=== PATIENT | male | born 1945 | race Caucasian/White ===

== ENCOUNTER 2017-03-12 18:34 | Inpatient (IN) | payer MEDICARE, MEDICAID ==
[~2017-03-12] VITALS: Wt 200.0 kg
[2017-03-12] VITALS (144 sets, daily range): O2SAT 91–99
[~2017-03-12 18:34] MED LIST: ARIXTRA2.5 MG/0.5 SC; ASPIRIN 32325 MG/TAB PO; ASPIRIN E.C.325 MG PO; CLOPIDOGREL PO; COUMADIN 4MG4 MG/TAB PO; DULCOLAX S10 MG/SUPP RC; DURICEF PO; FAMOTIDINE20 MG PO; FERROUS SU325 MG/TAB PO; FLOMAX 0.40.4 MG/CAP PO; FOLIC ACID PO; HUMALOG100 U/ML SQ; LANTUS100 U/ML SQ; LISINOPRIL10 MG PO; LOVAZA1 GM PO; NIACIN500 M4 PO; NIACOR500 MG PO; NIASPAN 500MG500 MG PO; NORCO 325 MG-51 TAB PO; NORVASC 10MG10 MG PO; NOVLOG SQ; NOVOLOG 100U100 U/ML SQ; PERCOCET 325 MG1 TA2 PO; PLAVIX 75MG TAB75 MG PO; PRINCIPEN500 MG PO; SENOKOT S 50 MG1 TAB PO; TOPROL XL100 MG PO; TRAZODONE50 MG PO; ULTRAM 50MG TAB50 MG PO; VIAGRA100 M1 PO; VICTOZA6 MG/ML SQ; VITAMIN C BUFF500 MG PO; VITAMIN C1 TAB PO; VITAMIN C500 MG PO; VITAMIN D1000 IU PO; VITAMIN D50000 I1 PO; VITAMIN E 400 U4001 PO; VITAMIN E-400200 IU PO; VYTORIN 10 MG-21 TAB PO; ZESTRIL 20MG TA20 MG PO; ZETIA 10MG TAB10 MG PO; ZOCOR 10MG10 MG PO; ZOCOR 40MG40 MG PO; ZOLOFT 50MG50 MG PO; ZOLOFT50 MG PO; ZOSYN 3.373.375 GM/V IV
[2017-03-12 19:18] LABS: COLLECTION METHOD CLEAN CATCH
[2017-03-12 19:26] LABS: MUCOUS Present /lpf; PH 5 (5-8); SQUAMOUS EPITHELIAL 0-2 /hpf; URINE APPEARANCE Clear; URINE BACTERIA None Seen /hpf; URINE BILIRUBIN Negative (NEGATIVE); URINE BLOOD 3+ (NEGATIVE); URINE COLOR Amber; URINE GLUCOSE 3+ (NEGATIVE); URINE KETONE Trace (NEGATIVE); URINE LEUKOCYTE ESTERASE Negative (NEGATIVE); URINE PROTEIN(semi-quant) 2+ (NEGATIVE); URINE RBC >50 /hpf; URINE UROBILINOGEN >=4.0 mg/dL (NEGATIVE); URINE WBC 0-2 /hpf
[2017-03-12] MEDS ORDERED: HYDROCODONE-IBUPROFE (20:09)
[2017-03-12 20:12] LABS: BASO % 0.7 % (0.0-2.0); GRAN # 4.5 (1.4-6.5); GRAN % 78.8 % (42.2-75.2); HEMATOCRIT 47.9 % (42.0-52.0); HEMOGLOBIN 16.7 g/dl (13.5-18.0); LYMPH # 0.7 (1.2-3.4); LYMPH % 12.6 % (20.0-51.0); MEAN CELL VOLUME 93 fl (80.0-100.0); MEAN CORPUSCULAR HEMOGLOBIN 32 pg (27.0-31.0); MEAN CORPUSCULAR HGB CONC 35 g/dl (33.0-37.0); MEAN PLATELET VOLUME 12.7 fl (7.4-10.4); MONO # 0.5 (0.1-0.6); MONO % 7.9 % (1.7-9.3); PLATELET COUNT 76 K/mm3 (130-400); RED BLOOD COUNT 5.17 M/mm3 (4.20-5.60); WHITE BLOOD COUNT 5.7 K/mm3 (4.8-10.8)
[2017-03-12 20:19] LABS: INR 1.1 (0.8-3.0); PROTHROMBIN TIME 13.3 SECONDS (9.7-12.8)
[2017-03-12 20:21] LABS: PARTIAL THROMBOPLASTIN TIME 31.3 SECONDS (26.0-37.0)
[2017-03-12 20:25] LABS: ADJUSTED CALCIUM 9.3 mg/dL (8.4-10.2); ALBUMIN 4.3 gm/dL (3.5-5.0); BILIRUBIN,TOTAL 1.7 mg/dL (0.0-1.0); C-REACTIVE PROTEIN 2.7 mg/dL (0.0-0.9); CALCIUM 9.5 mg/dL (8.4-10.2); CREATININE, serum 0.76 mg/dL (0.66-1.25); TOTAL PROTEIN 8.1 gm/dL (6.4-8.2)
[2017-03-12 20:34] LABS: TROPONIN-I 0.072 ng/mL (0.000-0.034)
[2017-03-12 20:52] LABS: TSH w REFLEX 0.511 uIU/mL (0.465-4.680)
[2017-03-12 21:56] LABS: ARTERIAL BLD GAS O2 SATURATION 96.5 % (92-100); ARTERIAL BLD GAS TCO2 CT 25.9; ARTERIAL BLOOD GAS BASE EXCESS -0.5 (-2-2); ARTERIAL BLOOD GAS HCO3 24.6 meq/L (22-26); ARTERIAL BLOOD GAS PHT 7.39 C (7.35-7.45); ARTERIAL BLOOD GAS PO2 86.1 mmHg (80-100); ARTERIAL BLOOD GAS PO2T 86.1 (80-100); ARTERIAL BLOOD GAS pH 7.39 (7.35-7.45); OXYHEMOGLOBIN 94.9 %
[2017-03-13] VITALS (258 sets, daily range): BP systolic 174–207; BP diastolic 69–99; PULSE 118–134; TEMP 100.9–101; O2SAT 96–98
[2017-03-13 03:35] LABS: ALLEN TEST YES; ALLENS TEST RESULT PASS; ATS? YES
== END 2017-03-13 04:45 | disposition short-term general hospital (02) | DRG 281 ==
LOC: COL.ER 18:34 → ICU 20:53
PROVIDERS: Emergency Medicine; Family Medicine
DX: I21.4 Non-ST elevation (NSTEMI) myocardial infarction (principal); R65.10 Systemic inflammatory response syndrome (SIRS) of non-infectious origin without acute organ dysfunction; Z66 Do not resuscitate; R31.9 Hematuria, unspecified; E11.9 Type 2 diabetes mellitus without complications; I25.10 Atherosclerotic heart disease of native coronary artery without angina pectoris; E78.5 Hyperlipidemia, unspecified; F32.9 Major depressive disorder, single episode, unspecified; D69.6 Thrombocytopenia, unspecified; G89.29 Other chronic pain; Z95.5 Presence of coronary angioplasty implant and graft; I25.2 Old myocardial infarction; Z79.4 Long term (current) use of insulin; Z87.891 Personal history of nicotine dependence
CPT/HCPCS: 99223-AI; J0360; J0696; J1170; J1650; J1815; J2060; J2765; J3010; J3370; J7030; J7050

== ENCOUNTER → 2017-06-01 | Outpatient (CLI) | payer MEDICARE, MEDICAID ==
[~2017-06-01] MED LIST changes: +HYDROCODONE-IBUPROFE
[2017-06-01 15:46] LABS: BASO % 1.3 % (0.0-2.0); EOS # 0.1 (0.0-0.7); EOS % 3.3 % (0-4.0); GRAN # 1.5 (1.4-6.5); HEMATOCRIT 45.8 % (42.0-52.0); HEMOGLOBIN 15.5 g/dl (13.5-18.0); LYMPH # 1.1 (1.2-3.4); LYMPH % 35.8 % (20.0-51.0); MEAN CELL VOLUME 94 fl (80.0-100.0); MEAN CORPUSCULAR HEMOGLOBIN 32 pg (27.0-31.0); MEAN CORPUSCULAR HGB CONC 34 g/dl (33.0-37.0); MEAN PLATELET VOLUME 12.6 fl (7.4-10.4); MONO # 0.3 (0.1-0.6); MONO % 11.3 % (1.7-9.3); PLATELET COUNT 74 K/mm3 (130-400); RED BLOOD COUNT 4.87 M/mm3 (4.20-5.60); REDCELL DISTRIBUTION WIDTH-CV 13.2 % (11.5-14.5)
[2017-06-01 15:59] LABS: ALBUMIN 3.7 gm/dL (3.5-5.0); CALCIUM 9.2 mg/dL (8.4-10.2); CHOLESTEROL RISK RATIO 3.6; CREATININE, serum 0.67 mg/dL (0.66-1.25); POTASSIUM 3.9 mmol/L (3.4-5.0); TOTAL PROTEIN 7.4 gm/dL (6.4-8.2)
== END ==
LOC: COL.LAB 15:21
PROVIDERS: Family Medicine
DX: I51.7 Cardiomegaly (principal); J90 Pleural effusion, not elsewhere classified; R09.89 Other specified symptoms and signs involving the circulatory and respiratory systems; E11.9 Type 2 diabetes mellitus without complications; Z88.8 Allergy status to other drugs, medicaments and biological substances; Z91.040 Latex allergy status

== ENCOUNTER → 2017-10-05 | Outpatient (CLI) | payer MEDICARE, MEDICAID ==
[~2017-10-05] MED LIST changes: +AMOXICILLIN 8751 TAB PO; +K-TAB10 PO; +LASIX 20MG TABL20 MG PO
[2017-10-05 14:05] LABS: CREATININE, serum 0.78 mg/dL (0.66-1.25); POTASSIUM 3.9 mmol/L (3.4-5.0)
== END ==
LOC: COL.LAB 12:48
PROVIDERS: Family Medicine
DX: E11.9 Type 2 diabetes mellitus without complications (principal); Z86.79 Personal history of other diseases of the circulatory system

== ENCOUNTER → 2018-02-27 | Outpatient (CLI) | payer MEDICARE, MEDICAID ==
[2018-02-27 17:39] LABS: BASO % 0.8 % (0.0-2.0); EOS # 0.2 (0.0-0.7); EOS % 4.1 % (0-4.0); GRAN % 51.4 % (42.2-75.2); HEMATOCRIT 45.7 % (42.0-52.0); HEMOGLOBIN 15.4 g/dl (13.5-18.0); LYMPH # 1.2 (1.2-3.4); LYMPH % 30.5 % (20.0-51.0); MEAN CELL VOLUME 95 fl (80.0-100.0); MEAN CORPUSCULAR HEMOGLOBIN 32 pg (27.0-31.0); MEAN CORPUSCULAR HGB CONC 34 g/dl (33.0-37.0); MEAN PLATELET VOLUME 12.8 fl (7.4-10.4); MONO # 0.5 (0.1-0.6); MONO % 12.9 % (1.7-9.3); PLATELET COUNT 87 K/mm3 (130-400); RED BLOOD COUNT 4.79 M/mm3 (4.20-5.60)
[2018-02-27 17:43] LABS: CALCIUM 9.2 mg/dL (8.4-10.2); CREATININE, serum 0.72 mg/dL (0.66-1.25); POTASSIUM 3.7 mmol/L (3.4-5.0)
== END ==
LOC: COL.LAB 16:11
PROVIDERS: Family Medicine
DX: I51.7 Cardiomegaly (principal); R09.89 Other specified symptoms and signs involving the circulatory and respiratory systems

== ENCOUNTER 2018-06-07 15:06 | Emergency (ER) | payer MEDICARE, MEDICAID ==
[~2018-06-07] VITALS: Ht 175.3 cm; Wt 181.8 kg
[2018-06-07 16:42] LABS: EOS # 0.1 (0.0-0.7); EOS % 1.7 % (0-4.0); GRAN # 2.9 (1.4-6.5); GRAN % 70.3 % (42.2-75.2); HEMATOCRIT 47.7 % (42.0-52.0); HEMOGLOBIN 15.9 g/dl (13.5-18.0); LYMPH # 0.6 (1.2-3.4); LYMPH % 14.6 % (20.0-51.0); MEAN CELL VOLUME 95 fl (80.0-100.0); MEAN CORPUSCULAR HEMOGLOBIN 32 pg (27.0-31.0); MEAN CORPUSCULAR HGB CONC 33 g/dl (33.0-37.0); MEAN PLATELET VOLUME 12.4 fl (7.4-10.4); MONO # 0.5 (0.1-0.6); MONO % 11.9 % (1.7-9.3); PLATELET COUNT 71 K/mm3 (130-400); RED BLOOD COUNT 5.02 M/mm3 (4.20-5.60); REDCELL DISTRIBUTION WIDTH-CV 13.3 % (11.5-14.5)
[2018-06-07 16:51] LABS: ALBUMIN 3.7 gm/dL (3.5-5.0); BILIRUBIN,TOTAL 1.5 mg/dL (0.0-1.0); CALCIUM 9.3 mg/dL (8.4-10.2); CREATININE, serum 0.74 mg/dL (0.66-1.25); POTASSIUM 3.8 mmol/L (3.4-5.0)
[2018-06-07 17:09] LABS: TROPONIN-I 0.057 ng/mL (0.000-0.035)
[2018-06-07 17:48] LABS: COLLECTION METHOD CLEAN CATCH
[2018-06-07 18:00] LABS: MUCOUS Present /lpf; PH 5 (5-8); SQUAMOUS EPITHELIAL 0-2 /hpf; URINE APPEARANCE Hazy; URINE BACTERIA None Seen /hpf; URINE BILIRUBIN Negative (NEGATIVE); URINE BLOOD 3+ (NEGATIVE); URINE CALCIUM OXALATE CRYSTAL Present /hpf; URINE COLOR Yellow; URINE GLUCOSE Negative (NEGATIVE); URINE KETONE Negative (NEGATIVE); URINE LEUKOCYTE ESTERASE Negative (NEGATIVE); URINE NITRATE Negative (NEGATIVE); URINE PROTEIN(semi-quant) 1+ (NEGATIVE); URINE RBC 20-50 /hpf; URINE UROBILINOGEN >=4.0 mg/dL (NEGATIVE)
[2018-06-07 19:08] VITALS: BP 146/64; PULSE 89; TEMP 99.4
== END 2018-06-07 22:28 | disposition short-term general hospital (02) ==
LOC: COL.ER 15:06
PROVIDERS: Emergency Medicine
DX: A41.9 Sepsis, unspecified organism (principal); J11.00 Influenza due to unidentified influenza virus with unspecified type of pneumonia; J18.9 Pneumonia, unspecified organism; L08.9 Local infection of the skin and subcutaneous tissue, unspecified; E66.01 Morbid (severe) obesity due to excess calories; Z68.43 Body mass index [BMI] 50.0-59.9, adult; Z79.82 Long term (current) use of aspirin; Z79.4 Long term (current) use of insulin; Z95.9 Presence of cardiac and vascular implant and graft, unspecified
CPT/HCPCS: J2543; J3370; J7030; J7040

== ENCOUNTER → 2018-06-20 | Outpatient (REF) ==
[~2018-06-20] MED LIST changes: +EPA FISH OIL1 SGL PO; +MIRALAX PA17 GM/Dose; +MUCINEX D1 TER PO; +NOVOLOG FLEX100 U/ML SQ; +SENNA-LAX8.6 MG PO; +TOPROL XL 25MG25 MG; +TYLENOL 325MG325 MG PO; +VITAMIN D31000 I1 PO; +VITAMIN E1000 U/CAP
[2018-06-20 16:08] LABS: COLLECTION METHOD CATHETER
[2018-06-20 16:26] LABS: PH 7 (5-8); SQUAMOUS EPITHELIAL None Seen /hpf; URINE APPEARANCE Cloudy; URINE BACTERIA None Seen /hpf; URINE BILIRUBIN Negative (NEGATIVE); URINE BLOOD 3+ (NEGATIVE); URINE COLOR Amber; URINE GLUCOSE Negative (NEGATIVE); URINE KETONE Negative (NEGATIVE); URINE LEUKOCYTE ESTERASE Negative (NEGATIVE); URINE NITRATE Negative (NEGATIVE); URINE PROTEIN(semi-quant) 2+ (NEGATIVE); URINE RBC >50 /hpf; URINE UROBILINOGEN >=4.0 mg/dL (NEGATIVE)
== END ==
LOC: ZCOL.LAB 16:07
PROVIDERS: Family Medicine
DX: N39.0 Urinary tract infection, site not specified (principal)

== ENCOUNTER → 2018-06-20 | Outpatient (REF) | LOC: CANPREREF → ZLAB.WCH 16:05 | DX: Z01.89 Encounter for other specified special examinations (principal) ==

== ENCOUNTER 2018-06-22 07:48 | Inpatient (IN) | payer MEDICARE, MEDICAID ==
[2018-06-22] VITALS (686 sets, daily range): BP systolic 110–136; BP diastolic 50–76; PULSE 65–92; TEMP 98.4–98.8; O2SAT 79–100
[~2018-06-22] VITALS: Ht 175.3 cm; Wt 192.3 kg
[~2018-06-22 07:48] MED LIST changes: -EPA FISH OIL1 SGL PO; -MIRALAX PA17 GM/Dose; -MUCINEX D1 TER PO; -NOVOLOG FLEX100 U/ML SQ; -SENNA-LAX8.6 MG PO; -TOPROL XL 25MG25 MG; -TYLENOL 325MG325 MG PO; -VITAMIN D31000 I1 PO; -VITAMIN E1000 U/CAP
[2018-06-22 08:09] LABS: ARTERIAL BLD GAS O2 SATURATION 97.8 % (92-100); ARTERIAL BLD GAS TCO2 CT 31.6; ARTERIAL BLOOD GAS BASE EXCESS 1.5 (-2-2); ARTERIAL BLOOD GAS HCO3 29.7 meq/L (22-26); ARTERIAL BLOOD GAS PCO2 62.6 mmHg (35-45); ARTERIAL BLOOD GAS PO2 121.7 mmHg (80-100); ARTERIAL BLOOD GAS pH 7.29 (7.35-7.45)
[2018-06-22 08:27] LABS: BASO % 0.7 % (0.0-2.0); EOS # 0.2 (0.0-0.7); EOS % 4.2 % (0-4.0); GRAN # 2.1 (1.4-6.5); GRAN % 52.7 % (42.2-75.2); HEMOGLOBIN 14.2 g/dl (13.5-18.0); LYMPH # 1.3 (1.2-3.4); LYMPH % 31.6 % (20.0-51.0); MEAN CELL VOLUME 100 fl (80.0-100.0); MEAN CORPUSCULAR HEMOGLOBIN 31 pg (27.0-31.0); MEAN CORPUSCULAR HGB CONC 32 g/dl (33.0-37.0); MEAN PLATELET VOLUME 12.9 fl (7.4-10.4); MONO # 0.4 (0.1-0.6); MONO % 10.6 % (1.7-9.3); PLATELET COUNT 100 K/mm3 (130-400); RED BLOOD COUNT 4.52 M/mm3 (4.20-5.60); REDCELL DISTRIBUTION WIDTH-CV 13.5 % (11.5-14.5)
[2018-06-22 08:27] LABS: COLLECTION METHOD CLEAN CATCH
[2018-06-22 08:34] LABS: HYALINE CAST >12 /lpf; MUCOUS Present /lpf; PH 6 (5-8); SQUAMOUS EPITHELIAL None Seen /hpf; URINE APPEARANCE Cloudy; URINE BACTERIA None Seen /hpf; URINE BILIRUBIN Negative (NEGATIVE); URINE BLOOD 3+ (NEGATIVE); URINE CALCIUM OXALATE CRYSTAL Present /hpf; URINE COLOR Red; URINE GLUCOSE 1+ (NEGATIVE); URINE KETONE Negative (NEGATIVE); URINE LEUKOCYTE ESTERASE Negative (NEGATIVE); URINE NITRATE Negative (NEGATIVE); URINE PROTEIN(semi-quant) 3+ (NEGATIVE); URINE RBC >50 /hpf; URINE UROBILINOGEN >=4.0 mg/dL (NEGATIVE)
[2018-06-22 08:40] LABS: ALBUMIN 3.4 gm/dL (3.5-5.0); BILIRUBIN,TOTAL 1.1 mg/dL (0.0-1.0); CALCIUM 9.2 mg/dL (8.4-10.2); CREATININE, serum 0.72 mg/dL (0.66-1.25); POTASSIUM 3.8 mmol/L (3.4-5.0); TOTAL PROTEIN 7.5 gm/dL (6.4-8.2)
[2018-06-22] MEDS ORDERED: EPA FISH OIL1 SGL PO (08:41)
[2018-06-22] MEDS ORDERED: TOPROL XL 25MG25 MG (08:42)
[2018-06-22] MEDS ORDERED: NOVOLOG FLEX100 U/ML SQ (08:44)
[2018-06-22] MEDS ORDERED: FLOMAX 0.40.4 MG/CAP PO (08:46)
[2018-06-22] MEDS ORDERED: VITAMIN E1000 U/CAP (08:47)
[2018-06-22] MEDS ORDERED: VITAMIN D31000 I1 PO (08:48)
[2018-06-22] MEDS ORDERED: TYLENOL 325MG325 MG PO (08:50)
[2018-06-22] MEDS ORDERED: SENNA-LAX8.6 MG PO (08:51)
[2018-06-22] MEDS ORDERED: MIRALAX PA17 GM/Dose (08:52)
[2018-06-22] MEDS ORDERED: MUCINEX D1 TER PO (08:53)
[2018-06-22 09:12] LABS: ARTERIAL BLD GAS O2 SATURATION 95.2 % (92-100); ARTERIAL BLD GAS TCO2 CT 33.8; ARTERIAL BLOOD GAS BASE EXCESS 2.7 (-2-2); ARTERIAL BLOOD GAS HCO3 31.6 meq/L (22-26); ARTERIAL BLOOD GAS PCO2 68.9 mmHg (35-45); ARTERIAL BLOOD GAS pH 7.28 (7.35-7.45)
--- NOTE | 2018-06-22 10:10 | NUR ---
Patient arrives to icu at 0940, DELI/BAKERY ASSOCIATE Pruss here to intubate the patient at 0950, Patient intubated at 0959. see RSI kit sheet in chart for sedation mediactions. Patient intubated with 8.0 tube, 25 at the teeth. 16F OG tube placed, 70 cm in at the teeth, confirmed placement with auscultation.
--- NOTE | 2018-06-22 10:25 | NUR ---
PT INTUBATED AT 0959 BY RN ON SITE WITH AN 8 ETT. SECURED AT 1002 WITH ETT MARIA. PT PLACED ON VENTILATOR AND SUCTION CATH PASSED. PT TOLERATED WELL. SP02 100% FIO2 WEANED TO 40%.
--- NOTE | 2018-06-22 11:13 | NUR ---
Dr. Phillips here to see patient. Orders received to call s/o for consent for central line placement. Attempted to call s/o multiple times with no answer.
--- NOTE | 2018-06-22 11:35 | NUR ---
Consent obtained via phone from León and Brice. We have a group discussion via phone with Brice Traore, and Tracy Rubi (patient's exwife and their mother) León and Brice confirm that it is ok to place central line on this patient, per Dr. Phillips recommendation. All questions answered and plan of care discussed. Phone consent completed with Latia Herrera RN.
[2018-06-22 11:43] LABS: ARTERIAL BLD GAS O2 SATURATION 91.2 % (92-100); ARTERIAL BLD GAS TCO2 CT 33.2; ARTERIAL BLOOD GAS BASE EXCESS 7.9 (-2-2); ARTERIAL BLOOD GAS HCO3 31.9 meq/L (22-26); ARTERIAL BLOOD GAS PCO2 42.1 mmHg (35-45); ARTERIAL BLOOD GAS PO2 53.8 mmHg (80-100)
[2018-06-22 14:10] LABS: ARTERIAL BLD GAS O2 SATURATION 96.9 % (92-100); ARTERIAL BLD GAS TCO2 CT 34.9; ARTERIAL BLOOD GAS BASE EXCESS 9.8 (-2-2); ARTERIAL BLOOD GAS HCO3 33.6 meq/L (22-26); ARTERIAL BLOOD GAS PO2 80.6 mmHg (80-100); ARTERIAL BLOOD GAS pH 7.52 (7.35-7.45)
[2018-06-22 15:02] LABS: C-REACTIVE PROTEIN 1.7 mg/dL (0.0-0.9)
[2018-06-22 15:19] LABS: TROPONIN-I 0.316 ng/mL (0.000-0.035)
[2018-06-22 15:45] LABS: ARTERIAL BLD GAS TCO2 CT 37.4; ARTERIAL BLOOD GAS BASE EXCESS 10.4 (-2-2); ARTERIAL BLOOD GAS HCO3 35.8 meq/L (22-26); ARTERIAL BLOOD GAS PCO2 50.9 mmHg (35-45); ARTERIAL BLOOD GAS PO2 81.4 mmHg (80-100); ARTERIAL BLOOD GAS pH 7.47 (7.35-7.45)
--- NOTE | 2018-06-22 15:55 | NUR ---
Patient remains sedated and intubated. TLC line in place to left IJ. Awaiting HEALTH SAFETY COORDINATOR to come place Arterial Line. VS remain WNL. SR on tele.Output from felipe catheter continues to be reddish. Per significant other, Marianne, this has been an ongoing issue for the patient over the last couple of days.
--- NOTE | 2018-06-22 19:15 | NUR ---
Bedside report given to GENNY Baxter
--- NOTE | 2018-06-22 20:00 | NUR ---
RECEIVED REPORT FROM GENNY JUAREZ. PATIENT IS INTUBATED AND RESTING PEACEFULLY IN BED. MEDICATIONS, TUBE PLACEMENT, AND VENTILATOR SETTINGS VARIFIED. WILL CONTINUE TO MONITOR PATIENT THROUGHOUT SHIFT.
--- NOTE | 2018-06-22 20:09 | NUR ---
CALLED [place] AND INFORMED RN OF THE CRITICAL TROPONIN LEVEL.
--- NOTE | 2018-06-22 20:19 | NUR ---
CALLED RT TO ASK FOR AN EKG ON PATIENT.
[2018-06-23] VITALS (1080 sets, daily range): BP systolic 93–149; BP diastolic 44–65; PULSE 54–73; TEMP 98–99.7; O2SAT 56–100
[2018-06-23 05:42] LABS: ARTERIAL BLD GAS O2 SATURATION 98.8 % (92-100); ARTERIAL BLD GAS TCO2 CT 33.7; ARTERIAL BLOOD GAS BASE EXCESS 7.5 (-2-2); ARTERIAL BLOOD GAS HCO3 32.3 meq/L (22-26); ARTERIAL BLOOD GAS PCO2 45.8 mmHg (35-45); ARTERIAL BLOOD GAS pH 7.47 (7.35-7.45)
[2018-06-23 05:43] LABS: ARTERIAL BLOOD GAS PO2 185.7 mmHg (80-100)
--- NOTE | 2018-06-23 05:45 | NUR ---
Patient observed having tremors in bilateral upper extremity. Appeared to be attempting to get this nurse's attention. This nurse asked if patient was doing ok and patient shook head no. Explained why patient was in the hospital and why he has a "tube in the throat". Also explained the purpsose of sedation and asked if he would like the sedation increased for comfort and to tolerate the ventilator; patient shook head yes; sedation increased.
[2018-06-23 05:58] LABS: BASO % 0.4 % (0.0-2.0); EOS # 0.1 (0.0-0.7); EOS % 2.3 % (0-4.0); GRAN # 3.2 (1.4-6.5); GRAN % 67.7 % (42.2-75.2); HEMOGLOBIN 13.3 g/dl (13.5-18.0); LYMPH % 20.1 % (20.0-51.0); MEAN CELL VOLUME 99 fl (80.0-100.0); MEAN CORPUSCULAR HEMOGLOBIN 31 pg (27.0-31.0); MEAN CORPUSCULAR HGB CONC 32 g/dl (33.0-37.0); MEAN PLATELET VOLUME 12.4 fl (7.4-10.4); MONO # 0.4 (0.1-0.6); MONO % 9.3 % (1.7-9.3); PLATELET COUNT 98 K/mm3 (130-400); RED BLOOD COUNT 4.24 M/mm3 (4.20-5.60); REDCELL DISTRIBUTION WIDTH-CV 13.8 % (11.5-14.5)
[2018-06-23 06:13] LABS: ALBUMIN 3.1 gm/dL (3.5-5.0); BILIRUBIN,TOTAL 0.9 mg/dL (0.0-1.0); CALCIUM 8.9 mg/dL (8.4-10.2); CREATININE, serum 0.87 mg/dL (0.66-1.25); MAGNESIUM 1.8 mg/dL (1.6-2.3); PHOSPHOROUS 3.9 mg/dL (2.5-4.5); POTASSIUM 3.6 mmol/L (3.4-5.0); TOTAL PROTEIN 6.7 gm/dL (6.4-8.2)
--- NOTE | 2018-06-23 06:28 | NUR ---
CONTACTED [facility] TO INFORM RN OF CRITICAL TROPONIN LEVEL, [phone].
--- NOTE | 2018-06-23 06:29 | NUR ---
RECEIVED WRITTEN ORDERS FROM DR. MARMOLEJO TO REPEAT TROPONIN LEVELS AT 10 AM AND 2 PM.
--- NOTE | 2018-06-23 07:10 | NUR ---
Bedside report received from Raghavendra RN. Patient vent settings reviewed, Propofol reviewed. Patient repositioned at this time. Care taken over at this time.
--- NOTE | 2018-06-23 07:16 | NUR ---
GAVE REPORT TO GENNY JUAREZ.
--- NOTE | 2018-06-23 09:30 | NUR ---
Propofol decreased at 0925 d/t moderate sedation and bradycardia with HR in 50s. Patient now wakes easily, he remains calm, and nod his head or shakes from side to side when i ask him yes/no questions. will continue to monitor.
--- NOTE | 2018-06-23 11:30 | NUR ---
Orders received from Dr. Phillips for LR bolus d/t persistent hypotension. He states to put the lisinopril on hold and that he will change the directions for metoprolol administration. He is also informed of low output at this time. He states he will order Bumex for diuresis after fluid bolus.
--- NOTE | 2018-06-23 13:30 | NUR ---
Blood pressure improved after LR bolus finishes. Will continue to monitor.
--- NOTE | 2018-06-23 14:00 | NUR ---
Spoke with Tracy (pt's ex-), on the phone. She has León (pt's son) on the phone with me also for an update on the patient's situation. I update them on the current plan of care and then we discuss Dr. Phillips's wish to have a family meeting tomorrow morning to further evaluate the patient's situation and plan of care. Tracy, who is a resident care associate for both of the patient's sons, León and Brice, states that she isn't able to drive them to the hospital tomorrow by 10 am as they live in [place] and being here that early is not a possibility d/t the sons' needs. I suggest a meeting via conference call with the doctor and s/o (Manny, RN, SW, and hospitalist on this side of the call and Tracy, León and Brice on the phone during the meeting at 10 AM tomorrow. She agrees to this plan. She states to call [phone], which is her house phone tomorrow when the team is ready to have the conference call with her and the sons. I explain to her that this phone call is necessary for the sons to be involved in his plan of care since they are the patient's next of kin and the patient does not have DPOA for medical set up to my knowledge. She verbalizes understanding. Will pass this information on to the shift supervisor film processing RN.
--- NOTE | 2018-06-23 14:19 | NUR ---
Patient lives at [facility] and plans to return to [facility] upon discharge. Patient uses a CPAP machine and his health has gradually been decreasing over the past 6 months. Patient recently had a stay in [facility] for Influencze/Pneumonia and was discharged to [facility]. Patient's friend (Kary Araiza) and family (son León Castillo) are supportive as needed. Patient does not have advance directives completed at this time. No further needs and social services analyst will follow as needed.
[2018-06-23 15:48] LABS: ARTERIAL BLD GAS O2 SATURATION 93.9 % (92-100); ARTERIAL BLD GAS TCO2 CT 29.7; ARTERIAL BLOOD GAS BASE EXCESS 4.2 (-2-2); ARTERIAL BLOOD GAS HCO3 28.5 meq/L (22-26); ARTERIAL BLOOD GAS PCO2 41.4 mmHg (35-45); ARTERIAL BLOOD GAS PO2 69.8 mmHg (80-100); ARTERIAL BLOOD GAS pH 7.46 (7.35-7.45)
--- NOTE | 2018-06-23 17:00 | NUR ---
Urine output continues to be low. Output is red(bloody) and full of sediment. Verbal order from Dr. Phillips is received to flush the felipe catheter and see if the urine output improves. Felipe catheter is flushed with 60cc sterile water, good urine output is noted after catheter is flushed. Dr. Phillips notified of improved output. Will continue to monitor.
--- NOTE | 2018-06-23 19:30 | NUR ---
Bedside report given to GENNY Aviles. IV gtts and Vent settings reviewed. All tubes and lines reviewed at this time also. Care turned over at this time.
--- NOTE | 2018-06-23 20:00 | NUR ---
Assessment complete; patient ablet squeeze hands on commands and opens eyes to speech. Observed tremors in upper extremities. When asked if he was experiencing pain patient shook head yes. Increased rate of fentanyl.
--- NOTE | 2018-06-23 20:15 | NUR ---
Oral suction performed; Several small bloody clots cleaned from mouth, blood was also noted dripping down from side of mouth. A scabbed but is present on the bottom lip, but does not appear to be the source of blood. Unable to see where blood is coming from in the oral cavity. PLt's are 98 and has Lovenox ordered. Called [facility] to ask if Lovenox should be held at this time. Awaiting further orders.
--- NOTE | 2018-06-23 22:45 | NUR ---
Recieved order from [facility] to hold lovenox for the night due to thrombocytopenia and bleeding from oral cavity.
[2018-06-24] VITALS (762 sets, daily range): BP systolic 105–136; BP diastolic 45–62; PULSE 55–75; TEMP 98.9–100.9; O2SAT 76–100
--- NOTE | 2018-06-24 03:30 | NUR ---
Tremors noted in upper extremities noted; patient reporting pain; fentanyl rate increased.
--- NOTE | 2018-06-24 04:00 | NUR ---
Assessment complete; able to follow simple commands and arouses easily. upper extremity tremors continue to be observed occasionally. When asked if these occur frequently, patient shook head yes. Denied pain at this time.
[2018-06-24 05:17] LABS: ARTERIAL BLD GAS O2 SATURATION 95.4 % (92-100); ARTERIAL BLD GAS TCO2 CT 31.5; ARTERIAL BLOOD GAS BASE EXCESS 5.4 (-2-2); ARTERIAL BLOOD GAS HCO3 30.1 meq/L (22-26); ARTERIAL BLOOD GAS PCO2 44.5 mmHg (35-45); ARTERIAL BLOOD GAS PO2 77.7 mmHg (80-100); ARTERIAL BLOOD GAS pH 7.45 (7.35-7.45)
[2018-06-24 05:32] LABS: BASO % 0.8 % (0.0-2.0); EOS # 0.2 (0.0-0.7); EOS % 3.9 % (0-4.0); GRAN # 2.3 (1.4-6.5); GRAN % 60.8 % (42.2-75.2); HEMATOCRIT 39.7 % (42.0-52.0); HEMOGLOBIN 12.6 g/dl (13.5-18.0); LYMPH # 0.9 (1.2-3.4); LYMPH % 24.2 % (20.0-51.0); MEAN CELL VOLUME 99 fl (80.0-100.0); MEAN CORPUSCULAR HEMOGLOBIN 32 pg (27.0-31.0); MEAN CORPUSCULAR HGB CONC 32 g/dl (33.0-37.0); MEAN PLATELET VOLUME 12.3 fl (7.4-10.4); MONO # 0.4 (0.1-0.6); PLATELET COUNT 90 K/mm3 (130-400); REDCELL DISTRIBUTION WIDTH-CV 13.8 % (11.5-14.5)
[2018-06-24 05:48] LABS: ALBUMIN 2.7 gm/dL (3.5-5.0); BILIRUBIN,TOTAL 0.9 mg/dL (0.0-1.0); CALCIUM 8.4 mg/dL (8.4-10.2); CREATININE, serum 0.83 mg/dL (0.66-1.25); MAGNESIUM 1.8 mg/dL (1.6-2.3); PHOSPHOROUS 3.8 mg/dL (2.5-4.5); POTASSIUM 3.5 mmol/L (3.4-5.0); TOTAL PROTEIN 6.1 gm/dL (6.4-8.2)
[2018-06-24 05:55] LABS: PRE ALBUMIN 9.3 mg/dL (17.6-36.0)
--- NOTE | 2018-06-24 06:39 | NUR ---
PT NOT IN SMART CARE ON TOO MUCH SEDATION AT THIS TIME
--- NOTE | 2018-06-24 07:10 | NUR ---
Bedside report received from GENNY Aviles.
--- NOTE | 2018-06-24 07:10 | NUR ---
Bedside report given to GENNY Avelar. Patient care transfered.
--- NOTE | 2018-06-24 07:30 | NUR ---
Assessment complete, patient intubated, patient restless, follows commands, nods head appropriately, sedation increased, see flowsheet. AM care performed.
--- NOTE | 2018-06-24 09:46 | NUR ---
LUIGI called conrado and Dr roman office and both report they do not have a DPOA on file for patient. Family meeting scheduled for 10 am.
--- NOTE | 2018-06-24 10:10 | NUR ---
Family mtg with Dr. Phillips.
--- NOTE | 2018-06-24 10:30 | NUR ---
AIVS here to place picc line.
--- NOTE | 2018-06-24 11:30 | NUR ---
Patient transferred to [facility].
--- NOTE | 2018-06-24 11:32 | NUR ---
Initial visit; Patient's family thanked Hoop Coiler for offering prayer and comfort during meeting with Dr. Phillips and Staff. Hoop [employer]iler will follow up.
--- NOTE | 2018-06-24 12:51 | NUR ---
LUIGI attended family meeting with drs, girlfriend, and sons/ex via phone. Dr explained patients prognosis and the different options the family could choose. The family is agreeable to make patient DNR and do not want to see him suffer. The sons and ex plan on coming to [place] from [place] for a meeting with Dr Phillips on evening at 6pm to make a decision about peg and trach placement. LUIGI talked with patients significant other after the meeting to discuss if a DPOA had been made ever. She reports they talked about it but never completed one. LUIGI confirmed that there are only two sons and discussed that they would be responsible for making any medical decisions as they are the next of kin. She was understanding of this. LUIGI followed up with [facility] as a past note said a referral was made. They do not have him in their system and did not have DPOA. LUIGI will continue to follow.
--- NOTE | 2018-06-24 16:00 | NUR ---
Patient repositioned in bed, patient moving arms, when asked if hot, patient nods head yes, fan turned on.
--- NOTE | 2018-06-24 19:35 | NUR ---
Bedside report given to GENNY Jarvis, all lines and gtts verified.
[2018-06-25] VITALS (650 sets, daily range): BP systolic 122–159; BP diastolic 53–107; PULSE 60–90; TEMP 98.9–100.6; O2SAT 84–100
[2018-06-25 05:16] LABS: BASO % 0.6 % (0.0-2.0); EOS # 0.1 (0.0-0.7); EOS % 1.9 % (0-4.0); GRAN # 3.8 (1.4-6.5); GRAN % 70.9 % (42.2-75.2); HEMATOCRIT 41.1 % (42.0-52.0); LYMPH # 0.8 (1.2-3.4); LYMPH % 14.8 % (20.0-51.0); MEAN CELL VOLUME 100 fl (80.0-100.0); MEAN CORPUSCULAR HEMOGLOBIN 32 pg (27.0-31.0); MEAN CORPUSCULAR HGB CONC 32 g/dl (33.0-37.0); MEAN PLATELET VOLUME 13.6 fl (7.4-10.4); MONO # 0.6 (0.1-0.6); MONO % 11.2 % (1.7-9.3); PLATELET COUNT 83 K/mm3 (130-400); RED BLOOD COUNT 4.11 M/mm3 (4.20-5.60); REDCELL DISTRIBUTION WIDTH-CV 13.6 % (11.5-14.5)
[2018-06-25 05:32] LABS: ARTERIAL BLD GAS O2 SATURATION 93.7 % (92-100); ARTERIAL BLOOD GAS BASE EXCESS 4.5 (-2-2); ARTERIAL BLOOD GAS HCO3 30.5 meq/L (22-26); ARTERIAL BLOOD GAS PO2 71.9 mmHg (80-100); ARTERIAL BLOOD GAS pH 7.39 (7.35-7.45)
[2018-06-25 05:32] LABS: BILIRUBIN,TOTAL 1.3 mg/dL (0.0-1.0); CALCIUM 8.6 mg/dL (8.4-10.2); CREATININE, serum 0.81 mg/dL (0.66-1.25); MAGNESIUM 1.8 mg/dL (1.6-2.3); PHOSPHOROUS 3.6 mg/dL (2.5-4.5); TOTAL PROTEIN 6.7 gm/dL (6.4-8.2)
--- NOTE | 2018-06-25 05:43 | NUR ---
FE HURST DOES NOT COME EQUIPPED WITH SMART CARE THEREFORE NOT DONE
--- NOTE | 2018-06-25 09:44 | NUR ---
Initial visit; Patient's significant other thanked Autom[employer] Refinisher for visit. Automotive Refinisher offered blessing for patient.
--- NOTE | 2018-06-25 15:01 | NUR ---
I met with significant other this afternoon to discuss what choices are being faced and answered some of her questions about what would happen if the ventilator was discontinued, could pt talk with a trach, etc? Kary reports that she was to Umer for 3 years when their children were teens but that it didn't work out and they parted ways. The rekindled that friendship greater than ten years later and have been together since. She states he never really talked about what he would want done in this situation. We did talk about use of comfort sounds and smells at end of life. She asked questions about grandchildren and what people do when the children are young. Support provided.
--- NOTE | 2018-06-25 19:20 | NUR ---
RECEIVED BEDSIDE REPORT FROM GENNY CH. PATIENT WAS RESTING IN BED. MEDICATIONS, VENTILATOR/OG PLACEMENT, VENTILATOR SETTING VARIFIED. WILL CONTINUE TO MONITOR PATIENT.
--- NOTE | 2018-06-25 19:25 | NUR ---
Today @ 1925 exchanged the loaner vent that was in use in ICU 8 with a [address] [place] vent. Loaner vent needs to have the manual check up completed. All new vent tubing was eplaced as well.
--- NOTE | 2018-06-25 21:47 | NUR ---
UNABLE TO ASSESS IF PATIENT IS CONFUSED OR ORIENTED X4 DUE TO BEING ON THE VENTILATOR. PATIENT IS ABLE TO SQUEEZE HANDS AND RESPONDS TO VERBAL COMMANDS. WILL CONTINUE TO MONITOR PATIENT.
[2018-06-26] VITALS (569 sets, daily range): BP systolic 122–149; BP diastolic 55–75; PULSE 60–82; TEMP 97.5–99.5; O2SAT 86–100
--- NOTE | 2018-06-26 01:34 | NUR ---
UNABLE TO ASSESS IF PATIENT IS CONFUSED OR ORIENTED AT THIS TIME DUE TO BEING INTUBATED.
--- NOTE | 2018-06-26 04:42 | NUR ---
UNABLE TO ASSESS IF PATIENT IS CONFUSED OR ORIENTED X4 DUE TO BEING INTUBATED.
[2018-06-26 05:37] LABS: ARTERIAL BLD GAS O2 SATURATION 91.7 % (92-100); ARTERIAL BLD GAS TCO2 CT 34.4; ARTERIAL BLOOD GAS BASE EXCESS 6.6 (-2-2); ARTERIAL BLOOD GAS HCO3 32.8 meq/L (22-26); ARTERIAL BLOOD GAS PCO2 52.8 mmHg (35-45); ARTERIAL BLOOD GAS pH 7.41 (7.35-7.45)
[2018-06-26 05:50] LABS: BASO % 0.7 % (0.0-2.0); EOS # 0.2 (0.0-0.7); EOS % 4.2 % (0-4.0); GRAN # 2.5 (1.4-6.5); GRAN % 61.5 % (42.2-75.2); HEMATOCRIT 37.5 % (42.0-52.0); HEMOGLOBIN 11.9 g/dl (13.5-18.0); LYMPH # 0.8 (1.2-3.4); LYMPH % 19.9 % (20.0-51.0); MEAN CELL VOLUME 100 fl (80.0-100.0); MEAN CORPUSCULAR HEMOGLOBIN 32 pg (27.0-31.0); MEAN CORPUSCULAR HGB CONC 32 g/dl (33.0-37.0); MEAN PLATELET VOLUME 13.1 fl (7.4-10.4); MONO # 0.6 (0.1-0.6); MONO % 13.5 % (1.7-9.3); PLATELET COUNT 81 K/mm3 (130-400); RED BLOOD COUNT 3.75 M/mm3 (4.20-5.60); REDCELL DISTRIBUTION WIDTH-CV 13.5 % (11.5-14.5)
[2018-06-26 05:59] LABS: ALBUMIN 2.7 gm/dL (3.5-5.0); CALCIUM 8.2 mg/dL (8.4-10.2); CREATININE, serum 0.8 mg/dL (0.66-1.25); MAGNESIUM 2.1 mg/dL (1.6-2.3); POTASSIUM 3.9 mmol/L (3.4-5.0); TOTAL PROTEIN 6.2 gm/dL (6.4-8.2)
--- NOTE | 2018-06-26 06:29 | NUR ---
UNABLE TO ATTAIN WEIGHT AT THIS TIME DUE TO INACCURATE BEDSCALE ON BERRIBED.
--- NOTE | 2018-06-26 07:26 | NUR ---
GAVE REPORT TO GENNY HAGER.
--- NOTE | 2018-06-26 07:30 | NUR ---
Bedside report received from GENNY Baxter.
--- NOTE | 2018-06-26 07:45 | NUR ---
Assessment complete, patient resting quietly, remains intubated, bilateral wrist restraints in place. AM care complete.
--- NOTE | 2018-06-26 11:23 | NUR ---
RT here BR increased to 16.
--- NOTE | 2018-06-26 13:25 | NUR ---
SW attended clinical rounding. Family meeting is still scheduled for tomorrow at 6pm to discuss pallative care vs agressive care. Patient still intubated. SW will continue to follow. Family is leaning towards Pallative care.
--- NOTE | 2018-06-26 14:48 | NUR ---
Talked with Kary outside of room today. She is planning to return to the room to hold Umer's hand. She feels he had communicated the desire to have his hand held to her with his expressions. Yesterday we had talked about visits from grandchildren, and last night they made videos that can be shared with Umer, since currently they are not allowed to visit. Kary reported that it was a good activity for all.
--- NOTE | 2018-06-26 14:58 | NUR ---
Left IJ central line removed, tip intact. Patient tolerated well.
[2018-06-26 15:32] LABS: ARTERIAL BLD GAS O2 SATURATION 94.3 % (92-100); ARTERIAL BLD GAS TCO2 CT 34.8; ARTERIAL BLOOD GAS BASE EXCESS 6.4 (-2-2); ARTERIAL BLOOD GAS HCO3 33.1 meq/L (22-26); ARTERIAL BLOOD GAS PCO2 56.5 mmHg (35-45); ARTERIAL BLOOD GAS PO2 74.2 mmHg (80-100); ARTERIAL BLOOD GAS pH 7.39 (7.35-7.45)
--- NOTE | 2018-06-26 19:05 | NUR ---
Bedside report given to GENNY Baxter, all lines and gtts verified.
--- NOTE | 2018-06-26 19:10 | NUR ---
RECEIVED REPORT FROM GENNY HAGER. PATIENT RESTIN IN BED. MEDICATIONS, VENTILATOR, AND OG VARIFIED. WILL CONTINUE TO MONITOR PATIENT.
[2018-06-27] VITALS (966 sets, daily range): BP systolic 114–135; BP diastolic 52–61; PULSE 55–63; TEMP 97.7–98.8; O2SAT 77–100
[2018-06-27 05:07] LABS: BASO % 0.6 % (0.0-2.0); EOS # 0.2 (0.0-0.7); EOS % 5.8 % (0-4.0); GRAN # 2.1 (1.4-6.5); GRAN % 56.7 % (42.2-75.2); HEMATOCRIT 38.9 % (42.0-52.0); HEMOGLOBIN 12.4 g/dl (13.5-18.0); LYMPH # 0.8 (1.2-3.4); LYMPH % 22.3 % (20.0-51.0); MEAN CELL VOLUME 100 fl (80.0-100.0); MEAN CORPUSCULAR HEMOGLOBIN 32 pg (27.0-31.0); MEAN CORPUSCULAR HGB CONC 32 g/dl (33.0-37.0); MEAN PLATELET VOLUME 13.7 fl (7.4-10.4); MONO # 0.5 (0.1-0.6); MONO % 14.3 % (1.7-9.3); PLATELET COUNT 80 K/mm3 (130-400); RED BLOOD COUNT 3.89 M/mm3 (4.20-5.60); REDCELL DISTRIBUTION WIDTH-CV 13.4 % (11.5-14.5)
--- NOTE | 2018-06-27 05:10 | NUR ---
PATIENT STARTED TO GET RESTLESS. INCREASED DIPRIVAN FROM 5 MCG/KG/MIN TO 10 MCG/KG/MIN ACCORDING TO THE TITRATION ORDERS. WILL CONTINUE TO MONITOR PATIENTS STATUS FOR A RASS SCORE OF -2 TO -1.
--- NOTE | 2018-06-27 05:16 | NUR ---
INCREASE IN RESTLESSNESS. WILL CONTINUE TO MONITOR FOR IMPROVED STATUS.
[2018-06-27 05:19] LABS: ALBUMIN 2.8 gm/dL (3.5-5.0); BILIRUBIN,TOTAL 0.9 mg/dL (0.0-1.0); CALCIUM 8.4 mg/dL (8.4-10.2); CREATININE, serum 0.7 (0.66-1.25); POTASSIUM 4.2 mmol/L (3.4-5.0); TOTAL PROTEIN 6.4 gm/dL (6.4-8.2)
--- NOTE | 2018-06-27 05:28 | NUR ---
INCREASED RESTLESSNESS. UNABLE TO PERFORM AT THIS TIME.
--- NOTE | 2018-06-27 05:59 | NUR ---
Oral care was done by ICU nurse at this time.
--- NOTE | 2018-06-27 06:05 | NUR ---
PT WAS PUT BACK ON SEDATION DUE TO BEING AGITATED SO WAS NOT ABLE TO DUE SMARTCARE.
--- NOTE | 2018-06-27 06:13 | NUR ---
UNABLE TO WEIGHT PATIENT AT THIS TIME DUE TO INACCURATE BEDSCALE.
--- NOTE | 2018-06-27 06:15 | NUR ---
DR. AMARAL VISITED WITH PATIENT. ASSESSED PATIENTS CONDITION. WILL CONTINUE TO MONITOR PATIENTS STATUS.
[2018-06-27 06:26] LABS: ARTERIAL BLOOD GAS pH 7.39 (7.35-7.45)
[2018-06-27 06:27] LABS: ARTERIAL BLD GAS TCO2 CT 36.6
--- NOTE | 2018-06-27 07:36 | NUR ---
Bedside report recieved from Vee ROYAL and Gaurav ROYAL. Medications verified, lines verified. Patient repositioned. Opens eyes and answers yes/no questions appropriately at this time. RT at bedside for eval.
--- NOTE | 2018-06-27 07:36 | NUR ---
GAVE REPORT TO GENNY KUHN. PATIENT WAS RESTING IN BED.
--- NOTE | 2018-06-27 11:49 | NUR ---
LUIGI spoke with patients ex Tracy ([phone]). Tracy reports patients son León is adopted and they have always suspected he has FAS. She has had Guardianship of him in the past however does not currently due to the cost. He functions at a lower level for problem solving and detention planning. Patients other son Brice has MS but is in remission. Mentally he is fully functioning and able to make decisions. LUIGI called Dr Phillips to update that Brice will be the one that will need to make the decions.
--- NOTE | 2018-06-27 13:36 | NUR ---
LUIGI student researched and provided options for cremation for the patient's family. LUIGI student gave options to nurse to give to family at meeting [facility] (06/27) at 1800.
--- NOTE | 2018-06-27 14:03 | NUR ---
No family present at bedside. Plan is still for family meeting at 6pm tonight.
--- NOTE | 2018-06-27 15:27 | NUR ---
ATTEMPTED SMARTCARE AT THIS TIME. PT RESPONDED WELL AT FIRST ABLE TO RAISE HEAD OFF OF PILLOW WHEN ASKED. HOWEVER, WITHIN THE FIRST TWO MINUTES OF CPAP MODE PT BECAME APNEIC 10+ SECONDS. COACHED PT AND TRIED THIS 3 TIMES. PT WAS UNABLE TO BE WEANED COMPLETELY OFF OF PAIN MEDICATIONS DUE TO PATIENT AGITATION. TRIAL ABORTED AT THIS TIME.
--- NOTE | 2018-06-27 17:35 | NUR ---
Family here for family meeting. Dr. Phillips aware, will be here to meet with family shortly. This RN at bedside and questions answered; emotional support given.
--- NOTE | 2018-06-27 18:10 | NUR ---
Family meeting at this time with Dr. Phillips and this RN. Prognosis and options presented to family. Family ask appropriate questions and all questions answered. 1830 - Dr. Franklin wants patient's sedation stopped at this time so doctor and family could speak with him. Done by Azeb Griffin RN
--- NOTE | 2018-06-27 19:18 | NUR ---
Bedside report given to Simona ROYAL. POC reviewed with RN and RT. Azeb Baxter APRN notified of change in patient status and move towards comfort care. No new orders from NURSING ADMIN at this time.
--- NOTE | 2018-06-27 19:53 | NUR ---
1931 pt extubated to 6[address]c per Dr. Alvina moulton. RN in room at this time.
--- NOTE | 2018-06-27 23:47 | NUR ---
1930 - PT ON COMFORT CARE AND EXTUBATED PER ORDER. PT TOLERATED PROCEDURE WELL. 1939 - FAMILY PRESENT AT BEDSIDE TALKING TO PT. 2349 - PT APPEARS TO BE RESTING IN BED WITH EYES CLOSED, APPERS COMFORTABLE. WILL CONTINUE TO MONITOR.
[2018-06-28] VITALS (172 sets, daily range): O2SAT 60–96
--- NOTE | 2018-06-28 07:10 | NUR ---
Report updates recieved from Simona ROYAL. Patient does not respond to RN at this time. Repositioned in bed for comfort. Cares done. Call light at side. Offers no s/s pain or discomfort at this time.
--- NOTE | 2018-06-28 09:10 | NUR ---
Family calls, Tracy and brina, for updates. Will be up to see patient. Updates given.
--- NOTE | 2018-06-28 11:26 | NUR ---
LUIGI, LUIGI student, and Pallative care nurse met with patient, his significant other Kary, ex , and two sons to discuss discharge planning and pallative care. keke, RN, explained comfort care here at the hosptial as well as the options at discharge. Family is interested in looking at [facility]. LUIGI called jay at who reports he can meet with them now but is busy this afternoon. [facility] is going to [facility] and discuss finances. LUIGI to continue to follow.
--- NOTE | 2018-06-28 11:50 | NUR ---
Met with two sons and both ex wives at bedside. Comfort quilt has been provided. We did discuss comfort care that is now in place and that he will remain in the hospital for 24-48 hours in that status but if he is still holding his own, we would look at transfer to a hospice service. Family would prefer that he not go to a half-way and are currently at [facility] talking with them and touring the facility. Pt has both medicare and medicaid and Leora provided his card to social science manager. Will continue to support family in this process.
--- NOTE | 2018-06-28 12:10 | NUR ---
Son calls RN to bedside. Patient has no respirations or audible heart sounds at this time. Joshua Tabares RN to bedside and verifies. Dr. Villalpando notifed and orders recieved to release body to home. Rest of family out of facility at this time, called and asked to [facility] to [facility]. Emotional support provided for all.
--- NOTE | 2018-06-28 12:25 | NUR ---
[facility] notified by Shania ROYAL, House Sup.
--- NOTE | 2018-06-28 13:00 | NUR ---
Spoke with family at length about post mortem process and what to expect. All present seem to recieve information well. Emotional support offered and provided. Family denies need for pastoral care, does not want them called at this time. [address] [facility] home contacted by this RN. Jeff states they will be here to pick and shovel man body.
--- NOTE | 2018-06-28 13:37 | NUR ---
Mary ROYAL, [facility] here and PICC from Right upper arm discontinued. Post mortem call provided at this time as family is out of room.
--- NOTE | 2018-06-28 13:44 | NUR ---
4115-Contacted [facility] regarding patient's . Review of patient's chart completed. Await return call from [facility]. [id number] states patient is not a candidate for donation and body may be released to the home. Referral #[id number]
--- NOTE | 2018-06-28 14:10 | NUR ---
Patient released to [facility] at this time. Comfort care blanket and watch given to Tracy and brina upon discharge.
--- NOTE | 2018-06-28 14:22 | NUR ---
Patient passed at 1210. SW student called [facility] to update them of patient's passing.
== END 2018-06-28 14:10 | disposition expired | DRG 207 ==
LOC: COL.ER 07:48 → ICU 09:05
PROVIDERS: Family Medicine; Internal Medicine; Internal Medicine Pulmonary Disease; Physician Assistant; ADMIT Internal Medicine
PROC: 5A1955Z Respiratory Ventilation, Greater than 96 Consecutive Hours (ICD-10-PCS; principal; 2018-06-22)
DX: J96.22 Acute and chronic respiratory failure with hypercapnia (principal); I21.A1 Myocardial infarction type 2; E66.2 Morbid (severe) obesity with alveolar hypoventilation; Z68.44 Body mass index [BMI] 60.0-69.9, adult; E87.3 Alkalosis; Z66 Do not resuscitate; Z51.5 Encounter for palliative care; J96.21 Acute and chronic respiratory failure with hypoxia; I10 Essential (primary) hypertension; I25.10 Atherosclerotic heart disease of native coronary artery without angina pectoris; E11.9 Type 2 diabetes mellitus without complications; E78.5 Hyperlipidemia, unspecified; Z95.5 Presence of coronary angioplasty implant and graft; G89.29 Other chronic pain; Z79.4 Long term (current) use of insulin; Z87.891 Personal history of nicotine dependence
CPT/HCPCS: 99223-AI; 99232-AI; 99233-AI; 99239; C1751; J0330; J1650; J1815; J1956; J2060; J2250; J2270; J2704; J3010; J7030; J7120